=== PATIENT | male | born 1935 | race American Indian/Alaskan Native ===

== ENCOUNTER 2019-02-26 06:25 | Emergency (ER) | payer MEDICARE, OTHER ==
[~2019-02-26] VITALS: Ht 170.2 cm; Wt 102.5 kg
[~2019-02-26 06:25] MED LIST: B-121000 MC2 PO; BAYER CHEWABLE81 MG PO; CARDURA8 MG PO; CIPROFLOXACIN500 MG PO; DILTIAZEM 24HR240 MG PO; FLECAINIDE ACE100 MG PO; HUMALOG KW200 UNIT/1 SUB-Q; HUMALOG100 UNIT/1 SQ; KLOR-CON 1010 MEQ PO; LANTUS SOL100 UNIT/1 SUB-Q; LANTUS100 UNIT/1 SUB-Q; LASIX40 MG PO; LINSEED OIL1 ML MC; LOVAZA1 GM PO; METOLAZONE5 MG PO; METOPROLOL TART50 MG PO; MULTI VITAMIN1 EACH PO; MULTIVITAMINS1 EAC7 PO; NITROGLYCERIN0.4 MG SL; NORCO 7.5-3251 EACH PO; NOVOLOG100 UNIT/1 SUB-Q; OCUVITE SOFTGE1 EACH PO; OMEPRAZOLE40 MG PO; OSTEO BI-FLEX1 EAC2 PO; POTASSIUM CHLO10 MEQ PO; PRADAXA150 MG PO; PRADAXA75 MG; PRILOSEC20 MG PO; RANITIDINE HCL150 MG; SAW PALMETTO160 MG PO; TAMBOCOR100 MG GT; TOPROL XL100 MG PO; TRILIPIX135 MG PO; VITAMIN B-121000 MCG PO; VITAMIN D31000 UNI1 PO; VITAMIN D31000 UNIT PO; VITAMIN E400 UNI3 PO; VITAMIN E400 UNI5 PO; XALATAN2.5 ML OP; XALATAN2.5 ML OU; XARELTO20 MG PO
--- OUTSIDE RECORDS SUMMARY | 2019-02-26 08:24 | XMS ---
PreManage Notification: MARYLOU CARNEY Security Rn Paralegal Events No recent Security Events currently on file CRITERIA MET - [facility] [place] CARE PROVIDERS VICTORINO KAN Nurse Practitioner 02/26/2019-Current PHONE: [phone] [facility] Current PHONE: Unknown LEGACY PATIENT Primary Care [facility] PHONE: Unknown SAIDA ARGUELLES Primary Care 06/17/2014-[facility] PHONE: Unknown Srinivasa has no Care Guidelines for this patient. Care History Medical/Surgical 02/26/2019 [facility] \T\middot;\T\nbsp; PATIENT IS A bMenu MEMBER. \T\middot;\T\nbsp; PLEASE REFER PATIENT TO [facility] FOR NON EMERGENT MEDICAL NEEDS. \T\middot;\ T\nbsp; [facility] CAN SEE PATIENTS SAME DAY FOR APTS IF PATIENT CALLS FIRST THING IN THE MORNING. E.D. VISIT COUNT (12 MO.) 3 [facility]. TOTAL 3 NOTE: Visits indicate total known visits. 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 - Presence of coronary angioplasty implant and graft - Heart failure, unspecified INPATIENT VISIT TRACKING (12 MO.) 01/15/2019 22:17 [facility] TYPE: Medical Surgical DIAGNOSES: - Massive Hemoptysis 01/12/2019 19:46 [facility] TYPE: Critical Care COMPLAINT: - UPPER GI BLEED DIAGNOSES: - Gastritis, unspecified, with bleeding - retirement (current) use of anticoagulants - Presence of coronary angioplasty implant and graft - Allergy status to other drugs, medicaments and biological substances status - retirement (current) use of aspirin - Hyperlipidemia, unspecified - Personal history of nicotine dependence - Allergy status to other antibiotic agents status - Essential (primary) hypertension - Personal history of nicotine dependence - Unspecified atrial fibrillation - Allergy status to other antibiotic agents status - Atherosclerotic heart disease of saxman coronary artery without angina pectoris - Other fci (current) drug therapy - Hematemesis - retirement (current) use of aspirin - Type 2 diabetes mellitus without complications - retirement (current) use of anticoagulants - Type 2 diabetes mellitus without complications - Allergy status to other drugs, medicaments and biological substances status - Gastritis, unspecified, with bleeding - Presence of coronary angioplasty implant and graft - Other fci (current) drug therapy - retirement (current) use of oral hypoglycemic drugs - Hyperlipidemia, unspecified - Atherosclerotic heart disease of saxman coronary artery without angina pectoris - Unspecified atrial fibrillation - Essential (primary) hypertension - retirement (current) use of oral hypoglycemic drugs [id number]
--- NOTE | 2019-02-26 13:09 | EKG ---
[facility] [address] [facility] [place] [address] Signed Normal sinus rhythm ST \T\ T wave abnormality, consider anterior ischemia Prolonged QT Abnormal ECG When compared with ECG of 13-JAN-2019 10:14, No significant change was found Confirmed by SEB DAVILA MD ([id number]) on 02/26/2019 1:08:43 PM Electronically Signed By: SEB DAVILA MD 02/26/19 1309 PATIENT NAME: ANGELIKAMARYLOU ALINA Electrocardiogram DATE OF : 39 PHYSICIAN: SEB DAVILA MD REPORT #: [id number] REPORT IS CONFIDENTIAL AND NOT TO BE RELEASED WITHOUT AUTHORIZATION
== END 2019-02-26 08:23 | disposition home or self-care (01) ==
LOC: ED 06:25
DX: R07.9 Chest pain, unspecified (principal); E11.9 Type 2 diabetes mellitus without complications; I50.9 Heart failure, unspecified; E78.5 Hyperlipidemia, unspecified; K21.9 Gastro-esophageal reflux disease without esophagitis; I48.91 Unspecified atrial fibrillation; Z87.891 Personal history of nicotine dependence; Z88.0 Allergy status to penicillin; Z88.1 Allergy status to other antibiotic agents; Z88.8 Allergy status to other drugs, medicaments and biological substances; Z79.899 Other long term (current) drug therapy; Z79.4 Long term (current) use of insulin; Z79.82 Long term (current) use of aspirin; Z79.01 Long term (current) use of anticoagulants
CPT/HCPCS: 71045; 80053; 83735; 84484; 85025; 93005; 93010; 99285-25

== ENCOUNTER 2020-06-01 15:41 | Inpatient (IN) | payer MEDICARE, OTHER ==
[~2020-06-01] VITALS: Ht 170.2 cm; Wt 99.6 kg
[~2020-06-01 15:41] MED LIST changes: -MULTI VITAMIN1 EACH PO; +OMEPRAZOLE20 MG PO; -PRILOSEC20 MG PO; +THEREMS MULTI400 MCG PO; -VITAMIN D31000 UNI1 PO; +VITAMIN D350 MCG PO
--- OUTSIDE RECORDS SUMMARY | 2020-06-01 15:44 | XMS ---
PreManage Notification: MARYLOU CARNEY Security Jewelry Designer Events No recent Security Events currently on file CRITERIA MET - [facility] - Has Care Guidelines CARE PROVIDERS VICTORINO KAN Nurse Practitioner 02/26/2019-Current PHONE: [phone] Srinivasa has no Care Guidelines for this patient. Care History Medical/Surgical 02/26/2019 [facility] \T\middot;\T\nbsp; PATIENT IS A Poach[employer] MEMBER. \T\middot;\T\nbsp; PLEASE REFER PATIENT TO [facility] FOR NON EMERGENT MEDICAL NEEDS. \T\middot;\ T\nbsp; [facility] CAN SEE PATIENTS SAME DAY FOR APTS IF PATIENT CALLS FIRST THING IN THE MORNING. E.D. VISIT COUNT (12 MO.) [address] [place] [address] TOTAL 1 NOTE: Visits indicate total known visits. ED/UCC VISIT TRACKING (12 MO.) 06/01/2020 15:[address] [facility] TYPE: Emergency COMPLAINT: - WEAKNESS, FEVER INPATIENT VISIT TRACKING (12 MO.) No inpatient visits to display in this time frame [email or web address]
--- NOTE | 2020-06-02 01:14 | NUR ---
0005 PATIENT ARRIVED VIA STRETCHER WITH CAREGIVER. PATIENT ALERT AND ORIENTED. TOO WEAK TO TRANSFER, 2 STAFF ASSIST TO MOVE PATIENT TO BED. VS STABLE, ORAL TEMP 100.1 F. PRN TYLENOL PROVIDED. PATIENT REPORTS SORE NECK AND BACK. WARM PACK PROVIDED. ASSISTED PATIENT TO USE THE URNAL. 0100 LOADING DOSE REMDESIVIR STARTED. IV SITE WNL. CAREGIVER AT BEDSIDE. PATIENT PROVIDED WITH WARM BLANKET AROUND THE SHOULDERS AND A WARM PACK FOR NECK PAIN.
--- NOTE | 2020-06-02 01:52 | NUR ---
REMDESIVIR FINISHED, SITE WNL. SL. ORAL TEMP 100.0 F. PATIENT 89-90% ON ROOM AIR WHEN SLEEPING. STARTED ON 2L NC. CAREGIVER AT BEDSIDE, WARM BLANKET PROVIDED. ALL QUESTIONS ANSWERED. NO FURTHER NEEDS AT THIS TIME. REVIEWED CALL LIGHT AND ENCOURAGED TO CALL FOR ANY NEEDS.
--- NOTE | 2020-06-02 04:00 | NUR ---
PATIENT APPEARS TO BE SLEEPING SOUNDLY. HOB ELEVATED. VS STABLE. CAREGIVER AT BEDSIDE.
--- NOTE | 2020-06-02 06:30 | NUR ---
MORNING LABS DRAWN FROM PATIENT'S IV SITE. PATIENT'S ORAL TEMP WNL. PATIENT'S BEDDING WET FROM DIAPHORESIS. NEW LINENS AND GOWN PROVIDED. PATIENT VOIDED WITH ASSIST FROM CAREGIVER IN URNAL. REPORTS FEELING HE HAD RESTED WELL. VS STABLE. PATIENT DENIED FEELING SOB AT REST. BREAKFAST ORDER RECEIVED.
[2020-06-02] MEDS ORDERED: HYDRALAZINE HCL25 MG PO (08:42)
[2020-06-02] MEDS ORDERED: PAIN RELIEF325 MG PO (08:46)
--- NOTE | 2020-06-02 09:16 | NUR ---
Pt up in bed eating breakfast. Daughter in room. BG 147 this morning. 3 units of humalog given w/ breakfast as well as 30 units of lantus. Pt is eating and drinking well. Adequate urine output. BP 150-160 systolic though HR is in 50's. Daughter reports this is baseline for him and Dr. Connor consulted while in room, 100 mg ER metoprolol given as it is what pt takes at home. Morning meds given and assessment completed. Pt denies nausea. Says eyes are burning and he takes lantaprost at home for his glaucoma, notified and daughter Lissette to bring in eye drops for tonight. Will get verified through pharmacy. No other needs at this time.
--- NOTE | 2020-06-02 09:30 | NUR ---
Called to speak with pt as he has +Covid. Spoke with daughter, Lissette. She states he lives alone. He has a ramp and his home has rails in the bathroom and halls. He uses a walker, has a shower chair, and uses his ramp. She denies needs, family will stay with him dc and assist as needed when he is released. Encouraged her to contact CM if she thinks of anything they will need for a safe dc.
--- NOTE | 2020-06-02 11:09 | NUR ---
Update given to Sandra from [facility].
--- NOTE | 2020-06-02 12:00 | NUR ---
PT EATING LUNCH. ACCUCHECK 253 AND 7 UNITS OF HUMALOG GIVEN IN LEFT ARM. PT IS TOLERATED ROOM AIR AT 91-94%. DAUGHTER TAWNYA REMAINS AT BEDSIDE ASSISTING PT W/ URINAL USE PRN. RT HAS BEEN IN TO SEE PT AND GIVEN EDUCATION OF IS, ACAPELLA AND PRONING TOLERATED. NO ACUTE CHANGES. CALL LIGHT IN REACH.
--- NOTE | 2020-06-02 12:54 | NUR ---
DUE TO PRECAUTIONS, UNABLE TO VISIT IN PERSON. WILL CALL IF PT DESIRES
--- NOTE | 2020-06-02 13:49 | NUR ---
Got pt. up and into shower. Pt. sat on shower tube and I assisted him with the shower. Pt. had a small bowel movement on the toilet. Pt. walked back to bed with assistance. Bed linens changed, room picked up. No other needs at this time. Call light with in reach. Pt. daughter in room with him.
--- NOTE | 2020-06-02 16:00 | NUR ---
IN TO CHECK PT BG 323. PT STATES HE NORMALLY TAKES HIGHER DOSE OF HUMALOG AT HOME SCHEDULED W/ MEALS. AFTERNOON ASSESSMENT COMPLETED. LUNG SOUNDS CLEAR, VSS. TOLERATING AMBULATING SHORT DISTANCES WELL. PT REMAINS BRADYCARDIC, WHICH IS BASELINE FOR HIM PER PT AND DAUGHTER. DINNER ORDERED. PT HOB ELEVATED WATCHING TV. CALL LIGHT IN REACH.
--- NOTE | 2020-06-02 18:00 | NUR ---
PT GIVEN 9 UNITS OF HUMALOG FOR BG OF 323, W/ DINNER. NOTIFIED OF HIGH BG THROUGHOUT DAY. 10 UNITS OF LANTUS ORDERED HS. PT HAS HAD ADEQUATE OUTPUT TODAY. ENCOURAGING TO DRINK FLUIDS. EDUCATED ON PRONING. IV SITE IN LAC REMAINS PATENT AND FLUSHING WELL. DAUGHTER PAM IS NOW IN ROOM. LANTAPROST EYE DROPS BROUGHT IN FOR PT'S GLAUCOMA. TO BE VERIFIED BY PHARMACY. ADVANCE DIRECTIVE BROUGHT IN BY DAUGHTER WHO WILL REMAIN AT BEDSIDE THROUGHOUT NIGHT. HELPFUL IN PT CARE. PT IS WITHOUT COMPLAINT AT THIS TIME AND HAS CALL LIGHT IN REACH.
--- NOTE | 2020-06-02 19:45 | NUR ---
PATIENT PROVIDED WITH EVENING MEDICATIONS AT THIS TIME PER FAMILY REQUEST. PATIENT REPORTS PAIN IN HIS NECK 01/24, PRN TYLENOL PROVIDED. PATIENT TOLERATING ROOM AIR, O2 SATS 92-94%. RR 20. ORAL TEMP WNL. PATIENT DENIED FEELING SOB AT REST. DISCUSSED ELEVATED BLOOD GLUCOSE, PATIENT VERBALIZED UNDERSTANDING OF SHORT TERM STERIOD TREATMENT ON HIS BLOOD GLUCOSE. FRESH ICE WATER PROVIDED. FAMILY AND PATIENT DENIED FURTHER NEEDS. CALL LIGHT IN REACH.
--- NOTE | 2020-06-02 21:40 | NUR ---
SCHEDULED IV MEDS FINSIHED. SITE WNL, SL. PATIENT TALKING WITH HIS FAMILY. DOES NOT APPEAR SOB, DENIES FEELING UNWELL. VS STABLE. TOLERATING ROOM AIR. DENIED NEEDS AT THIS TIME.
--- NOTE | 2020-06-03 | NUR ---
PATIENT APPEARS TO BE SLEEPING SOUNDLY. INGOT CASTER AT BEDSIDE. VS STABLE.
--- NOTE | 2020-06-03 06:00 | NUR ---
MORNING MEDS PROVIDED. PATIENT WAKES EASY. PATIENT REPORTS FEELING WELL. DENIES PAIN OR SOB. VS STABLE. GOWN DAMP. NEW GOWN APPLIED. PATIENT DENIED FURTHER NEEDS.
--- NOTE | 2020-06-03 07:30 | NUR ---
PATIENT SHIFT REPORT RECIEVED FROM JAPANESE INTERPRETER RN. PATIENT RESTING IN BED WITH HIS DAUGHTER AT THE BEDSIDE. PATIENT AND FAMILY CALL APPROPRIATELY. WILL CONTINUE TO CLOSELY MONITOR.
--- NOTE | 2020-06-03 09:30 | NUR ---
PATIENT ASSESSMENT COMPLETED. PATIENT RESTING IN BED WITH HIS DAUGHTER AT THE BEDSIDE. ALL QUESTIONS ANSWERED. UNABLE TO LISTEN TO BREATH SOUNDS, BOWEL TONES, AND HEART TONES D.Bobby THIS RN WEARING A PAPR. PATIENT HAS AN OCCASIOANL LOOSE COUGH. PATIENT RR 22 AND NONLABORED. SPO2 95% ON RA. PATIENT DENIES ABD PAIN. PATIENT REPORTS CHRONIC BACK PAIN. THE HOB NEEDS TO BE IN A SPECIFIC SPOT FOR HIS COMFORT. PATIENT ATE BREAKFAST ON HIS OWN THIS AM WITH NO ISSUES. MEDICATIONS ADMINISTERED. PATIENT BRUSHED HIS OWN TEETH AND WASHED HIS FACE. ASSISTED PATIENT ONTO HIS RIGHT SIDE WITH PILLOW SUPPORT. RASCH IN TO SEE PATIENT AT THIS TIME. WILL CONTINUE TO CLOSELY MONITOR. CALL LIGHT IN REACH.
--- NOTE | 2020-06-03 10:00 | NUR ---
NO CHANGES IN DISCHARGE PLAN AT THIS TIME.
--- NOTE | 2020-06-03 11:00 | NUR ---
PATIENT TALKING TO FAMILY ON THE PHINE. PATIENT DENEIS ANY OTHER NEEDS AT THIS TIME. WILL CONTINUE TO CLOSELY MONITOR.
--- NOTE | 2020-06-03 11:24 | NUR ---
PATIENT SLEEPING IN BED RIGHT NOW WITH HIS DAUGHTER AT THE BEDSIDE. NO NEEDS AT S ITIME. WILL ENCOURAGE PATIENT TO CONTINUE RESTING ON HIS SIDE AT THIS TIME.
--- NOTE | 2020-06-03 12:15 | NUR ---
THIS RN IN TO ASSIT PATIENT UP TO THE BATHROOM. PATIENTS LINEN CHANGED. PATIENT NOW UP RESTING IN THE CHAIR EATING LUNCH. PATIENTS DAUGHTER IN THE ROOM. MEDICATIONS GIVEN. NO OTHER NEED AT THIS TIME. WILL CONTINUE TO CLSOELY MONITOR.
--- NOTE | 2020-06-03 12:34 | NUR ---
PT ON RESTRICTIONS, WILL FOLLOW ABLE OR NEEDED
--- NOTE | 2020-06-03 13:31 | NUR ---
Asst. pt. to bathroom using his walker. Pt. walked back to the chair using his walker. Gave pt. Bed bath. Changed gowns, no other needs at this time. Daughter in room wih pt.
--- NOTE | 2020-06-03 14:30 | NUR ---
THIS RN IN TO ASSIST PATIENT UP TO THE BATHROOM. PATIENT WALKED WITH THE WALKER WITH NO ISSUES AND NOW BACK TO BED. ASSISTED PATIENT TO HIS LEFT SIDE WITH PILLOW SUPPORT TO INCREASE POSITION CHANGES. PATIENT IS UNABLE TO LAY PRONE, BUT IS AGREEABLE TO LAYING ON EACH SIDE FOR SEVERAL HOURS. PATIENT CONTINUES TO USE AQAPELLA AND IS WITH HIS DAUGHTERS ENCOURAGEMENT. PATIENT REMOVED BOTH HEARING AIDS AND PLACED IN HIS CONTAINER AT THIS TIME. PATIENTS DAUGHTER REMAINS AT THE BEDSIDE. NO OTHER ISSUES WILL CONTINUE TO CLOSELY MONITOR.
--- NOTE | 2020-06-03 16:00 | NUR ---
REPORT GIVEN TO NAEL MOSCOSO. UPDATED ON PATIENTS PLAN OF CARE. NO FURTHER QUESTIONS. NAEL MOSCOSO WILL RESUME CARE.
--- NOTE | 2020-06-03 16:13 | NUR ---
1605: Report received from Prasad MOSCOSO.
--- NOTE | 2020-06-03 17:25 | NUR ---
Pt watching tv and visiting with his daughter (Daysi). He denies any pain or sob, to include when he ambulated to the BR with Daysi. Sat is in the 90's on RA. I was unable to listen to his heart, lungs or abd due to PAPR. Tele reads SB in the high 40's which he and Daysi state is baseline for him. Call vogt within reach and the pt is eating his dinner and denies any other needs at this time.
--- NOTE | 2020-06-03 18:48 | NUR ---
WOUND BEHIND THE RIGHT EAR WAS CHANGED. THE OPEN AREA IS 1X.25CM WITH SOME RED AREA AROUND THE OPEN AREA. THE SITE WAS CLEANED WITH SALINE, PATTED DRY AND PACKED WITH IODOFORM PACKING STRIP. THE PT STATED THERE WAS SOME DISCOMFORT WHICH HE STATES IS NORMAL AND HE STATES THE PAIN IS NOW GONE. SIRIA STATES THIS IS HOW THEY DO THE DRESSING CHANGE AND THEY DO IT DAILY. PT ASSISTED TO THE BR AND TOLERATED IT WELL WITH NO SOB. HE WAS A BIT WEAK AND SLIGHTLY UNSTEADY ON HIS FEET WITH HIS WALKER. PT NOW BACK TO BED AND PLACED ON A PORTABLE TELE UNIT TO ALLOW MORE MOBILITY.
--- NOTE | 2020-06-03 19:50 | NUR ---
PT TRANSFERED TO SC FROM CCU. ORIENTED TO ROOM, VITAL SIGNS COMPLETED, VISITORS AT BEDSIDE ENGAGED IN CARE. CALL LIGHT IN REACH, WILL CONTINUE PLAN OF CARE.
--- NOTE | 2020-06-03 20:56 | NUR ---
MEDICATIONS ADMINISTERED, IV FLUSHED WNL. VITALS COMPLETE, PT SINUS DENAE AT BASELINE. PT STATES NO SOB, RR AT 20, SPO2 AT 96% ON RA. UNABLE TO AUSCULTATE DUE TO PAPR USE. PT REPORTS A BOWEL MOVEMENT TODAY, USES 4WW WITH SBA TO BR TO VOID AND URINAL AT BEDSIDE. R EAR WOUND PACKED W IODOFORM GAUZE, NO DRAINAGE NOTED AT THIS TIME, PT REPORTS NO PAIN. TRACE EDEMA TO BLE, PT STATES NO NUMBNESS OR TINGLING IN FEET BUT PRIOR NOTES STATE PT HAS BASELINE NUMBNESS. PT SAXMAN, HAS HEARING AIDS. TELE IN PLACE. PT AMBULATED TO BR USING 4WW, STEADY GAIT, SBA. 1 UNMEASURED VOID. PT BACK TO BED WITH WARM BLANKET, HOT PACK ON NECK, URINAL AT BEDSIDE AND WATER REFRESHED. DAUGHTER IN ROOM, ATTENTIVE TO PT AND ENGAGED IN CARE. CALL LIGHT IN REACH, NO OTHER NEEDS AT THIS TIME.
--- NOTE | 2020-06-03 23:15 | NUR ---
ROUNDED ON PATIENT, IN BED RESTING WITH EYES CLOSED, NO LABORED BREATHING. DAUGHTER IN ROOM. SALINE LOCKED, CALL LIGHTIN REACH, NO OTHER NEEDS NOTED AT THIS TIME.
--- NOTE | 2020-06-04 01:04 | NUR ---
Rounded on patient, laying in bed with eyes closed, breathing even and unlabored. Daughter in room. Pt has no apparent needs or distress at this time, call light in reach, will continue to monitor.
--- NOTE | 2020-06-04 01:58 | NUR ---
CALL LIGHT ANSWERED, PT REQUESTS PRN TYLENOL FOR GENERAL DISCOMFORT "CANT SLEEP". THERMOSTAT ADJUSTED, WATER REFRESHED, SLEEP MASK PROVIDED. DAUGHTER STATES PT HAS BEEN UP TO BR 3X, UNMEASURED VOIDS. MEASURING HAT PLACED IN TOILET. ASSESSMENT COMPLETE, UNABLE TO LISTEN D/T PAPR BUT PT REPORTS NO SOB, NO LABORED BREATHING, RR 18. NO OTHER NEEDS REPORTED.
--- NOTE | 2020-06-04 03:29 | NUR ---
ROUNDED ON PATIENT, RESTING IN BED WITH SLEEP MASK ON, BREATHING EVEN AND UNLABORED. NO APPARENT NEEDS OR DISTRESS, DAUGHTER IN ROOM. CALL LIGHT IN REACH, WILL CONTINUE TO MONITOR.
--- NOTE | 2020-06-04 05:29 | NUR ---
Rounded on patient, in bed with eyes closed, no labored breathing noted. On room air. no apparent needs. will continue to monitor.
--- NOTE | 2020-06-04 06:30 | NUR ---
SCHEDULED MEDICATIONS ADMINISTERED, VITALS AND I/O'S COMPLETE, LABS DRAWN. PT STATES NO PAIN OR DISCOMFORT AT THIS TIME, IS RESTING COMFORTABLY IN BED WITH DAUGHTER IN ROOM. ON ROOM AIR, SPO2 95%, REPORTS NO SOB. CALL LIGHT IN REACH, WILL CONT TO MONITOR
--- NOTE | 2020-06-04 07:15 | NUR ---
THIS RN RECIEVED REPORT FROM JD MOSCOSO. THIS RN DID NOT GO IN PTS ROOM FOR REPORT DUE TO A PRECAUTION ROOM. PTS DAUGHTER SOLEDAD IN ROOM
--- NOTE | 2020-06-04 09:30 | NUR ---
THIS RN IN PTS ROOM TO TALK WITH PTS AND GIVE HER AN UPDATE ON PTS STATUS. THIS RN ASKED IF PT WOULD LIKE SOME GATORADE OVER WATER, PT STATED THAT WOULD BE OKAY. IN PTS ROOM TO EVALUATE PT. PER VERBAL ORDER FROM THIS RN TO SALINE LOCK PT UNTIL AFTER THE LAB DRAW. PT SALINE LOCKED AT THIS TIME
--- NOTE | 2020-06-04 12:20 | NUR ---
THIS RN IN PTS ROOM TO DO PTS BLOOD SUGAR. BLOOD SUGAR = 230. THIS RN GAVE PT 7 UNITS OF INSULIN, DUE TO PT BEING IN AN ISOLATION ROOM THIS RN AND DANIEL RN DOUBLE VERIFIED INSULIN OUTSIDE OF ROOM. PTS VITALS LOOK GOOD. HR STILL LOW IN THE MID TO LOW 50'S. AWARE
--- NOTE | 2020-06-04 14:45 | NUR ---
THIS RN POKED HER HEAD IN PTS ROOM. PT BACK IN BED AND APPEARS TO BE RESTING. THIS RN STATED TO PTS DAUGHTER THAT THIS RN WILL BE BACK TO HOPEFULLY GET PT IN THE SHOWER LATER, PTS DAUGHTER GAVE THIS RN A THUMBS UP
--- NOTE | 2020-06-04 17:15 | NUR ---
THIS RN IN PTS ROOM TO GET PTS BLOOD SUGAR. PTS BLOOD SUGAR WAS 366. PT DID HAVE HIS DAUGHTERS JOSE MANUEL MOROCHO WITH [employer] PUTTING HIS CARB LIMIT AT 92. PT ALSO RECIEVED DEXAMETHASONE. THIS RN PROVIDED PT WITH 11 UNITS OF HUMALOG. PT STATES HE HAS NO PAIN
--- NOTE | 2020-06-04 19:20 | NUR ---
PT LYING IN BED. SHIFT REPORT RECIEVED BY RN. DAUGHTER IN ROOM.
--- NOTE | 2020-06-04 22:17 | NUR ---
ASSESSED PT BP AND IS HIGH 190 SYSTOLIC. PT DENIES SOB, CHEST PAIN AND SILVER. MD NOTIFIED. NO NEW ORDERS RECIEVED.
--- NOTE | 2020-06-04 23:20 | NUR ---
PT LYING IN BED. ASSESSMENT COMPLETE. SCHEDULED MEDS GIVEN. PT STATES THAT HE DOES NOT FEEL LIGHT HEADED AT THIS TIME. PT DENIES PAIN. DRESSING CHANGE COMPLETE ON R EAR. NO DRAINAGE NOTED. WILL CONTINUE TO MONITOR. DAUGHTER IN ROOM. CALL LIGHT IN REACH.
--- NOTE | 2020-06-05 00:33 | NUR ---
PT 1P STANDBY TO THE BATHROOM. MONITORED BP HIGH 190 WITH SYSTOLIC. PRN BP MED GIVEN.
--- NOTE | 2020-06-05 01:33 | NUR ---
REASSESSED BP 199/66 WITH MONITOR AND 192/60 MANUALLY. NOTIFIED. NO NEW ORDERS. WILL CONTINUE TO MONITOR.
--- NOTE | 2020-06-05 01:35 | NUR ---
PT DENIES CHEST PAIN AND SOB.
--- NOTE | 2020-06-05 03:51 | NUR ---
ROUNDED PT LYING IN BED. EYES CLOSED. NO S/S OF SOB.RR WNL WITH UNLABORED BREATHING. DAUGHTER IN ROOM. CALL LIGHT IN REACH.
--- NOTE | 2020-06-05 07:46 | NUR ---
[id number]: Report received from Marie Mchugh and Monse MCHUGH.
--- NOTE | 2020-06-05 08:34 | NUR ---
PT RESTING IN HIS BED WITH NO COMPLAINTS OF PAIN OR SOB. BP REMAINS ELEVATED BUT WAS RECENTLY MEDICATED BY THE PRIOR SHIFT. MD NOTIFIED OF ELEVATED BP AND THE MEDS THAT WERE GIVEN. SEE ASSESSMENT.
--- NOTE | 2020-06-05 10:37 | NUR ---
PT'S DAUGHTER STATES THAT SHE ASSISTED TO THE PT TO THE BR WITH THE USE OF HIS WALKER. SHE STATES THAT THE PT IS STEADY WITH THE WALKER AND THAT HE IS MOVING THE SAME HE WAS BEFORE HE BECAME SICK. PT DENIES ANY PROBLEMS AT THIS TIME.
--- NOTE | 2020-06-05 11:49 | NUR ---
PT AMBULATED TO THE BR WITH THE USE OF HIS WALKER AND WAS STEADY ON HIS FEET. PT NOW BACK TO HIS BED AND HE IS WATCHING FOOTBALL WITH HIS DAUGHTER. PT CONTINUES TO DENY ANY PROBLEMS.
--- NOTE | 2020-06-05 13:25 | NUR ---
Pt resting in his bed and he denies any sob, pain or any other problems. See assessment.
--- NOTE | 2020-06-05 13:27 | NUR ---
Pt's daughter Kamini requested that the IV site not be changed as the pt is planning for a dc tomorrow and that he is a tough iv start.
[2020-06-05] MEDS ORDERED: DEXAMETHASONE6 MG PO (14:50)
--- NOTE | 2020-06-05 15:54 | NUR ---
PATIENT UP TO BATHROOM, SBA FWW. PATIENT MOSTLY IND IN SHOWER. SKIN CARE, SHAMPOO, DONTA CARE DONE. NEW ATTENDS, SOCKS, AND GOWN. LINENS CHANGED. PATIENT TOLERATED SHOWER WELL AND HAD O2 STAT OF 94% IMMEDIATLY FOLLOWING SHOWER ON RA. PATIENT NOW BACK TO BED, SBA FWW. VISITOR IN ROOM. CALL LIGHT IN REACH. NO FURTHER NEEDS AT THIS TIME.
--- NOTE | 2020-06-05 16:12 | NUR ---
PT WATCHING TV AND IS VISITING WITH HIS DAUGHTER AND HE DENIES ANY PROBLEMS AT THIS TIME.
--- NOTE | 2020-06-05 16:54 | NUR ---
PT CONTINUES TO DENY ANY PROBLEMS. PT TURNED TO HIS SIDE AT THIS TIME FOR A POSITION CHANGE.
--- NOTE | 2020-06-05 19:20 | NUR ---
PT LYING IN BED. SHIFT REPORT RECIEVED BY RN. DAUGHTERS IN THE ROOM. CALL LIGHT IN REACH.
--- NOTE | 2020-06-05 20:45 | NUR ---
PT LYING IN BED. ASSESSMENT COMPLETE. SCHEDULED MEDS GIVEN. I AND O'S DONE. DRESSING CHANGE COMPLETE. NO DRAINAGE NOTED. PT DENIES SOB AND PAIN. BP SYSTOLIC 167. HR HIGH 40'S. DAUGHTER IN THE ROOM. CALL LIGHT IN REACH.
--- NOTE | 2020-06-05 22:46 | NUR ---
PT LYING IN BED. EYES CLOSED. NO S/S OF SOB. RR WNL WITH UNLABORED BREATHING. DAUGHTER IN ROOM. CALL LIGHT IN REACH.
--- NOTE | 2020-06-05 23:33 | NUR ---
PT LYING IN BED. EYES CLOSED. NO S/S OF SOB. RR WNL WITH UNLABORED BREATHING. TELE BATTERY REPLACED. DAUGHTER IN ROOM. NO NEEDS AT THIS TIME.
--- NOTE | 2020-06-06 00:04 | NUR ---
PT LYING IN BED. EYES CLOSED. NO S/S OF SOB. RR WNL WITH UNLABORED BREATHING. DAUGHTER IN ROOM.
--- NOTE | 2020-06-06 04:33 | NUR ---
PT LYING IN BED. EYES CLOSED. RR WNL WITH UNLABORED BREATHING. CALL LIGHT IN REACH.
--- NOTE | 2020-06-06 05:16 | NUR ---
ALERT AND ORIENTED. [facility]. DRESSING CHANGED ON R EAR. NO DRAINAGE NOTED. TELE #2 SINUS DENAE 40'S HR. NO S/S OF SOB. DENIES PAIN. IV SALINE LOCKED. 60G CARB DIET. 1P STANDBY TO THE BATHROOM. DAUGHTER IN ROOM.
--- NOTE | 2020-06-06 06:26 | NUR ---
PT LYING IN BED. ASSESSMENT COMPLETE. PT DENIES CHEST PAIN AND SOB. BP HIGH 180'S SYSTOLIC. PRN BP MED ADMINISTED. I AND O'S DONE. CALL LIGHT IN REACH.
--- NOTE | 2020-06-06 07:40 | NUR ---
REPORT RECEIVED. PT IN ISOLATION ROOM WITH DAUGHTER. TELE [address] HR 48. O2 96% RA. CALL LIGHT IN REACH.
--- NOTE | 2020-06-06 08:25 | NUR ---
WENT IN TO CHECK BLOOD SUGAR, BLOOD SUGAR WAS 71, RN NOTIFIED. PATIENT WAS SITTING UP IN BED, VISITOR IN ROOM. MADE SURE ALL AM AAND ORAL CARE SUPPLIES WERE AVALIABLE FOR PATIENT. ASKED BOTH PATIENT AND VISITOR IF THEY NEEDED ANYTHING THEY BOTH SIAD NO. CALL LIGHT IN REACH. NO FURTHER NEEDS AT THIS TIME.
--- NOTE | 2020-06-06 10:04 | NUR ---
MEDS GIVEN. PT SAT UP FOR BREAKFAST. BS 71 SO JUICE AND CRACKERS GIVEN. DAUGHTER AT BEDSIDE.
--- NOTE | 2020-06-06 10:39 | NUR ---
RN DID VITAL SIGNS EARLIER. THIS TURN SEWER JUST CHECKED ON PATIENT, PATIENT SITTING UP IN BED WATCHING TV, VISITOR AT BED SIDE. CALL LIGHT IN REACH. ASKED PATIENT AND VISITOR IF THEY NEEDED ANYTHING AND BOTH SAID NOT AT THIS TIME.
--- NOTE | 2020-06-06 10:42 | NUR ---
SPOKE WITH DAUGHTER TAWNYA ON ROOM PHONE. SHE STATES THEY HAVE EVERYTHING THEY FEEL THEY NEED FOR PATIENT TO GO HOME SAFELY. DISCUSSED THAT IF SOMETHING COMES UP TO LET STAFF NURSES KNOW AND THEY CAN GET CASE MANAGEMENT INVOLVED. FAMILY WILL BE WITH PATIENT AT HOME. CM WILL CONTINUE TO FOLLOW NEEDED.
--- NOTE | 2020-06-06 11:00 | NUR ---
DISCHARGE INSTRUCTIONS PROVIDED. NO QUESTIONS IV DC'D AND WNL. DAUGHTER ASSISTING WITH DRESSING.
--- NOTE | 2020-06-06 11:34 | NUR ---
DISCHARGE ISNTRUCTIONS PROVIDED TO PATIENT AND DAUGHTER. NO QUESTIONS. PRESCRIPTION PROVIDED. IV DC'D AND WNL. PACKET PROVIDED.
== END 2020-06-06 11:30 | disposition home or self-care (01) | DRG 177 ==
LOC: ED 15:41 → CCU 23:19 → MS 06-03 19:45
PROVIDERS: ADMIT Internal Medicine; ATTEND Internal Medicine
PROC: XW033E5 Introduction of Remdesivir Anti-infective into Peripheral Vein, Percutaneous Approach, New Technology Group 5 (ICD-10-PCS; principal; 2020-06-02)
DX: U07.1 COVID-19 (principal); J12.89 Other viral pneumonia; R09.02 Hypoxemia; I25.10 Atherosclerotic heart disease of native coronary artery without angina pectoris; I10 Essential (primary) hypertension; E11.9 Type 2 diabetes mellitus without complications; I48.91 Unspecified atrial fibrillation; H91.90 Unspecified hearing loss, unspecified ear; Z95.5 Presence of coronary angioplasty implant and graft; Z87.891 Personal history of nicotine dependence; Z88.8 Allergy status to other drugs, medicaments and biological substances; Z88.1 Allergy status to other antibiotic agents; Z79.01 Long term (current) use of anticoagulants; Z79.82 Long term (current) use of aspirin; Z79.4 Long term (current) use of insulin; Z79.899 Other long term (current) drug therapy
CPT/HCPCS: 71045; 71260; 80053; 81001; 83735; 83880; 84484; 85025; 85379; 94667; 99285-25; J1815; J7030; J7050; J8540; Q9967

== ENCOUNTER 2021-04-24 19:09 | Inpatient (IN) | payer MEDICARE, OTHER ==
[~2021-04-24] VITALS: Ht 170.2 cm; Wt 94.8 kg
[~2021-04-24 19:09] MED LIST changes: +DEXAMETHASONE6 MG PO; +HYDRALAZINE HCL25 MG PO; +PAIN RELIEF325 MG PO
--- NOTE | 2021-04-25 17:07 | EKG ---
[facility] [address] [facility] [place], [place] [address] Signed Normal sinus rhythm Nonspecific ST and T wave abnormality Prolonged QT Abnormal ECG When compared with ECG of 26-FEB-2019 06:30, No significant change was found Confirmed by ALAN LOREDO DO ([id number]) on 04/25/2021 5:07:40 PM Electronically Signed By: ALAN LOREDO DO 04/25/21 1707 PATIENT NAME: MARYLOU CARNEY Electrocardiogram DATE OF : 39 PHYSICIAN: ALAN LOREDO DO REPORT #: [id number] REPORT IS CONFIDENTIAL AND NOT TO BE RELEASED WITHOUT AUTHORIZATION
[2021-04-26] MEDS ORDERED: HYDRALAZINE HCL50 MG PO (08:02)
[2021-04-26] MEDS ORDERED: METRONIDAZOLE250 MG PO (08:04)
[2021-04-26] MEDS ORDERED: NITROSTAT0.4 MG SL (08:18)
--- NOTE | 2021-04-28 22:30 | EKG ---
[facility] [address] [facility] [place], [place] [address] Signed Normal sinus rhythm Rightward axis Nonspecific ST abnormality Prolonged QT Abnormal ECG When compared with ECG of 24-APR-2021 19:54, T wave inversion less evident in Anterior leads QT has lengthened Confirmed by ALAN LOREDO DO ([id number]) on 04/28/2021 10:29:55 PM Electronically Signed By: ALAN LOREDO DO 04/28/212229 PATIENT NAME: ANGELIKAMARYLOU ALINA Electrocardiogram DATE OF : 39 PHYSICIAN: ALAN LOREDO DO REPORT #: [id number] REPORT IS CONFIDENTIAL AND NOT TO BE RELEASED WITHOUT AUTHORIZATION
--- NOTE | 2021-04-30 15:07 | CONS ---
[facility] [address] [place], [place] [address] Signed DATE OF CONSULTATION: 04/25/2021 CONSULTING PHYSICIAN: Gaby Griggs MD. REQUESTING PHYSICIAN: Dr. Hudson. PROBLEM: Probable gallstone pancreatitis and multiple medical problems. HISTORY: This relatively frail 85-year-old [place]ian man was admitted to the hospital to the intensive care unit by Dr. Hudson early this morning. The patient presented to the emergency room late last night at approximately 9:30 p.m. and evaluated by Dr. Leach. He was noted to have significant epigastric pain, which had been going on for about 3 days. He noted that food caused worsening pain. He had an elevated temperature to 101 since yesterday as well as chills. He had no nausea, vomiting, diarrhea, or urinary symptoms, nor cough or congestive symptoms. His initial evaluation included chest x-ray, which showed no sign of pneumonia or other particular problem. Labs were assessed for COVID and subtypes of flu, all of which were negative. A CT scan of the abdomen was performed, which showed gallstones and a mildly distended gallbladder, but not acutely inflamed. Bile ducts were unremarkable. There was no sign of choledocholithiasis or intrahepatic ductal dilatation. Pancreas had mild peripancreatic fat stranding and a single calcification in the region of the pancreatic head. There is some nodularity of the left adrenal gland 1.2 cm in diameter. A 10 cm left renal cyst was also noted. I have reviewed those films myself. His lab study showed a white count of only 7.6 with hematocrit of 39.1. By this morning, his white count was elevated at 13.3, his hematocrit down to 33.1. Platelet count was 179,000 and subsequently 156,000. His coag studies were abnormal with an INR of 1.73; the patient does take a thrombin inhibitor. His PTT was elevated at 48.0. Chem profile was abnormal for a creatinine of 1.94. A total bilirubin of 5.6, AST 90, ALT 68, and alk phos 38. His BNP was elevated at 864, lipase 2819. The patient was admitted to the intensive care unit for further management. He has been placed on antibiotics currently to include piperacillin. Initially, he was treated with meropenem. Consultation has been requested on the basis of his probable gallstone related pancreatitis. Electronically Signed By: GABY GRIGGS MD 04/30/21 1507 PATIENT NAME: MARYLOU CARNEY CONSULTATION DATE OF : 39 REPORT #: [id number] PHYSICIAN: GABY GRIGGS MD PCP: VANE FOLEY MD REPORT IS CONFIDENTIAL AND NOT TO BE RELEASED WITHOUT AUTHORIZATION [facility] [address] [place], [place] [address] Signed The patient currently feels epigastric discomfort still. He has had no nausea or vomiting since admission in the hospital earlier in the morning. He has some mild left flank pain as well. 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 He had no esophageal varices and no hemoptysis. The patient has had associated dysphagia in recent times as well including a sensation of "food getting stuck" with both solids and liquids. Other medical issues include chronic atrial fibrillation for which he is anticoagulated, hypertension, congestive heart failure, type 2 diabetes, and chronic renal disease. Notably, the patient does not smoke nor does he use alcohol. ALLERGIES: He has several notable allergies including , Keflex, ezetimibe, irbesartan, lisinopril, metformin, amiodarone, amlodipine, oxybutynin, and fenofibrate. MEDICATIONS: His current medications include omeprazole, multivitamin, metoprolol, doxazosin, fenofibric acid (choline), vitamin D, glargine insulin and Humalog insulin, hydralazine, Tylenol, Xarelto (rivaroxaban), aspirin, Lasix, flecainide, Xalatan (latanoprost) eye drops. REVIEW OF SYSTEMS: He denies any trouble with breathing currently and denies any chest pain. He does describe epigastric pain. SOCIAL HISTORY: He is a [employer] member locally. He is accompanied by his daughter, who is a nurse at [employer]. PHYSICAL EXAMINATION: GENERAL: Large and obese Gu[place]ian man, 102.8 kg, BMI 35.5. Mucous membranes are slightly dry. Trachea is midline. He has no hoarseness. I see no oropharyngeal blood. There is no jugular venous distention. CHEST: Shows normal respiratory excursion without tachypnea. HEART: Rate at present is regular and sinus at 89. ABDOMEN: Soft and nondistended. Easy palpation is noted. There is tenderness in the epigastric area, but no discernible mass. EXTREMITIES: Show no clubbing, cyanosis, or edema. LAB STUDIES: Electronically Signed By: GABY GRIGGS MD 04/30/21 9605 PATIENT NAME: MARYLOU CARNEY CONSULTATION DATE OF : 39 REPORT #: [id number] PHYSICIAN: GABY GRIGGS MD PCP: VANE FOLEY MD REPORT IS CONFIDENTIAL AND NOT TO BE RELEASED WITHOUT AUTHORIZATION [facility] [address] [place], [place] [address] Signed As were previously described. Most notably elevated bilirubin and only mildly elevated liver enzymes as well as elevated creatinine and abnormal coagulation studies. ASSESSMENT: I reviewed the CT scan in detail. His clinical picture is highly consistent with gallstone pancreatitis. Notably, the gallstone noted on CT scan is rather large. He may have additional debris within the gallbladder that has passed through the duct and provoked pancreatitis. A calcific change in the head of the pancreas may represent a stone in the pancreatic duct. However, this is uncertain. I discussed with Dr. Hudson as well as the patient and his daughter typical management to include improvement of the pancreatitis process with intravenous fluids. Pain control would be appropriate as well. He is certainly able to have some clear liquids and ice chips, but should avoid regular eating at this time. Cholecystectomy would be performed to minimize chances of recurrent pancreatitis. The risks of bleeding, infection, bile duct injury, and also failure to cure the problem reviewed with him and his daughter. For now, management from medical perspective is most appropriate, particularly given his need for resolution of his anticoagulation and hopefully improvement of his creatinine. The patient has numerous significant medical comorbidities including his congestive heart failure and diabetes for which this ailment can be extremely serious and even result in demise. All are aware of that. We will continue to follow his course anticipating probable cholecystectomy in the near future depending on his improvement. MD LARY Cortez/KLEVERL /[id number] Copies: Electronically Signed By: GABY GRIGGS MD 04/30/21 1507 PATIENT NAME: MARYLOU CARNEY CONSULTATION DATE OF : 39 REPORT #: [id number] PHYSICIAN: GABY GRIGGS MD PCP: VANE FOLEY MD REPORT IS CONFIDENTIAL AND NOT TO BE RELEASED WITHOUT AUTHORIZATION [address] [address] Signed ~ Electronically Signed By: GABY GRIGGS MD 04/30/21 1507 PATIENT NAME: MARYLOU CARNEY CONSULTATION DATE OF : 39 REPORT #: [id number] PHYSICIAN: GABY GRIGGS MD PCP: VANE FOLEY MD REPORT IS CONFIDENTIAL AND NOT TO BE RELEASED WITHOUT AUTHORIZATION
--- NOTE | 2021-05-01 13:41 | OR ---
[facility] [address] [place], [place] [address] Signed DATE OF OPERATION: 04/25/2021 SURGEON: Sirena Ramirez MD PREPROCEDURAL DIAGNOSIS: Difficult Cameron catheterization. POSTPROCEDURAL DIAGNOSES: 1. Difficult Cameron catheterization. 2. 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 NAME OF PROCEDURE: Diagnostic cystoscopy with insertion of an indwelling Cameron catheter over a Sensor wire. ANESTHESIA: 10 mL of 2% lidocaine gel. ESTIMATED BLOOD LOSS: None. COMPLICATIONS: None. SPECIMENS: None. DRAINS: A 16-S[place]ankan [place] tip Cameron catheter, connected to gravity drainage. INDICATION FOR PROCEDURE: Mr. Carney was admitted to the CCU this morning through the emergency department after presenting with fevers and chills. He underwent a CT scan, which revealed the most likely source of his sepsis as gallstone pancreatitis. Emergency room nurses attempted to place a Cameron catheter. However, they were unsuccessful and immediately noted the return of blood after attempting to pass the catheter. Thankfully, the patient was able to void on his own after his admission, however, he is sick enough to require continuous urine output monitoring and so Urology was consulted and has been asked to place an indwelling Cameron catheter. PROCEDURAL FINDINGS: Electronically Signed By: SIRENA RAMIREZ MD 05/01/21 1341 PATIENT NAME: MARYLOU CARNEY OPERATIVE REPORT DATE OF : 39 REPORT #: [id number] PHYSICIAN: SIRENA RAMIREZ MD PCP: VANE FOLEY MD REPORT IS CONFIDENTIAL AND NOT TO BE RELEASED WITHOUT AUTHORIZATION [facility] [address] [place], [place] [address] Signed 1. Visual inspection of the external genitalia reveals an uncircumcised phallus with a glanular meatus. Testicles are descended bilaterally and are without any palpable masses. 2. Cystourethroscopy reveals a mildly stenotic and pale pendulous urethra. There is a tear in the bulbar urethra at the 5 o'clock position, consistent with a likely urethral false passage due to traumatic Cameron catheterization. It does still appear to be actively bleeding, but only merely oozing at this time. 3. Evaluation of the bladder reveals no evidence of any suspicious masses, lesions, or stones. Bilateral ureteral orifices are in their normal anatomic location. 4. A 16-S[place]ankan [place] tip Cameron catheter was passed into the bladder over a Sensor wire without difficulty, connected to gravity drainage. Approximately 250 mL of urine was drained from the bladder after placement of the Cameron catheter. DESCRIPTION OF PROCEDURE: After informed consent was obtained, the patient was placed in the supine position and his genitalia were prepped and draped in a standard sterile fashion. A flexible cystoscope was advanced through his urethra and into his bladder and a thorough evaluation of his urethra and bladder were then performed. Please see above findings. A 0.03 Sensor wire was passed through the cystoscope and into the patient's bladder under direct visualization. The cystoscope was then removed fully intact, leaving the Sensor wire behind. Over the Sensor wire, a 16-S[place]ankan [place] tip Cameron catheter was passed into the patient's bladder. A good deal of bloody urine was ejected from the bladder as the catheter was passed due to what was likely a bladder contraction. The catheter was placed over the wire without difficulty and the wire was removed leaving the catheter behind. The catheter with balloon was then filled with 10 mL of water. The gravity bag was then connected to the Cameron catheter and an anchor was then placed on the catheter. The procedure was then terminated. The patient tolerated the procedure well without any complication. DISPOSITION: I informed the nurse that the patient may have his catheter removed once he recovers well enough from his sepsis and is transferred to the med/surg unit. He will require a voiding trial. However, I am confident he will pass a voiding trial since he normally has no issues voiding. His urethral false passage should heal fairly well within the next 1 to 2 weeks. Sirena Ramirez MD Electronically Signed By: SIRENA RAMIREZ MD 05/01/21 1341 PATIENT NAME: MARYLOU CARNEY OPERATIVE REPORT DATE OF : 39 REPORT #: [id number] PHYSICIAN: SIRENA RAMIREZ MD PCP: VANE FOLEY MD REPORT IS CONFIDENTIAL AND NOT TO BE RELEASED WITHOUT AUTHORIZATION [address] [address] Signed TERRANCE/YAMILKA /[id number] Copies: ~ Electronically Signed By: SIRENA RAMIREZ MD 05/01/21 1341 PATIENT NAME: MARYLOU CARNEY ALINA OPERATIVE REPORT DATE OF : 39 REPORT #: [id number] PHYSICIAN: SIRENA RAMIREZ MD PCP: VANE FOLEY MD REPORT IS CONFIDENTIAL AND NOT TO BE RELEASED WITHOUT AUTHORIZATION
--- NOTE | 2021-05-02 13:57 | OR ---
[facility] [address] [place], [place] [address] Signed DATE OF OPERATION: 04/28/2021 SURGEON: Gaby Griggs MD PREOPERATIVE DIAGNOSES: 1. Recent acute pancreatitis, gallstone related. 2. Multiple medical problems. 3. Obesity. POSTOPERATIVE DIAGNOSES: 1. Subacute cholecystitis with gallstones. 2. Choledocholithiasis. PROCEDURES: 1. Laparoscopic cholecystectomy with attempted (failed common duct exploration). 2. Surgeon-directed fluoroscopy (prolonged, complicated, and difficult). ANESTHESIA: General endotracheal, Gaby Maria CRNA and local 20 mL of 0.25% Marcaine with epinephrine. INDICATIONS: This 85-year-old obese man has numerous medical problems including congestive heart failure, diabetes mellitus, chronic anticoagulation for atrial fibrillation with a thrombin inhibitor and additional issues including epigastric pain. His evaluation revealed he had pancreatitis with markedly elevated lipase and a CT scan showing distended gallbladder with extremely large stone. There was no sign of intrahepatic ductal dilatation. He was admitted on April 24, 2021, by Dr. Hudson and treated for systemic sepsis in the intensive care unit initially with broad-spectrum antibiotics. His liver enzymes though elevated initially have progressively improved to the point now that his alkaline phosphatase and bilirubin are normal. His lipase remains elevated, but improving and though he still has some epigastric pain and some posterior thoracic pain particularly the left side. Consideration is made for a cholecystectomy, so as to minimize chances of recurrent pancreatitis in the future. The risks of bleeding, infection, bile duct injury, need for common duct exploration and so forth were all reviewed with the patient and his daughter, who is a nurse and who accompanies him. They understand and wish to proceed. FINDINGS: Electronically Signed By: GABY GRIGGS MD 05/02/21 1357 PATIENT NAME: MARYLOU CARNEY OPERATIVE REPORT DATE OF : 39 REPORT #: [id number] PHYSICIAN: GABY GRIGGS MD PCP: VANE FOLEY MD REPORT IS CONFIDENTIAL AND NOT TO BE RELEASED WITHOUT AUTHORIZATION [facility] [address] [place], [place] [address] Signed The gallbladder was subacutely inflamed. He had a chronically inflamed liver. There was some bile-stained ascites, but not excessive. I did not detect saponification in the lesser sac. The gallbladder was challenging to excise on the basis of its size and location and more importantly intraabdominal obesity features, but with a Fan retractor, it was able to be accomplished. Cholangiogram performed showed filling defect in the mid common bile duct and multiple attempts to provide for laparoscopic common duct exploration were unsuccessful by transcystic approach. Given his recent pancreatitis, inflammatory changes, and edema of the christian hepatis and so forth, it was deemed inadvisable to proceed to open common duct exploration as I normally would. At this point, it is known he has retained single gallstone in the mid common bile duct, but there is passage of bile through the common duct into the duodenum on completion x-ray. The gallbladder itself had extremely large stones at least one 4 cm in length and other about 2 cm. There was no sign of neoplasm. Due to the extent of inflammation of the gallbladder, a portion of the back wall of the gallbladder was left in situ to the liver. The liver did show chronic changes and fatty infiltration. A drain was left in place. DESCRIPTION OF PROCEDURE: The patient was brought to the operating room, given a general endotracheal anesthetic. The abdomen was prepared with chlorhexidine solution and draped sterilely. Broad-spectrum antibiotics were already on his routine use and an additional dose was not given prior to the operation. A Cameron catheter was already in place. The abdomen was prepared with a chlorhexidine solution and draped sterilely. An infraumbilical incision was made and using an open Sherman cannula technique, pneumoperitoneum was achieved to a level of 14 mmHg of carbon dioxide gas. Intraabdominal inspection showed minimal ascites fluid in the subhepatic space, it was bile stained. There was no sign of free-floating bile otherwise, however. The liver itself was chronically inflamed. The gallbladder appeared to have edema, but not severe acute inflammatory changes. Three additional trocars were placed in the usual configuration in the subxiphoid, right midclavicular, and right anterior axillary line. Given his body habitus of obesity, it was a challenge to elevate the gallbladder particularly given his heavy and fatty liver. The gallbladder was elevated cephalad and an additional 5-mm mid abdominal trocar was placed to allow placement of a Fan retractor, which retracted the duodenum and omental fat to provide visualization of the infundibulum. Significant edema of the infundibulum and surrounding tissue was noted, but there was no evidence of saponification. The infundibulum of the gallbladder was retracted laterally and using blunt electrocautery dissection, the triangle of Calot was dissected free. A very thickened somewhat dilated cystic duct was noted. Ultimately, a window was created between the gallbladder plate. A clip was applied across the gallbladder cystic duct junction and a transverse choledochotomy was made in the cystic duct. There was no significant egress of bile initially. A lot of edema and swelling of the duct was noted. Retrograde milking of the cystic duct remnant was undertaken, which delivered some grainy soft and mushy Electronically Signed By: GABY GRIGGS MD 05/02/21 1357 PATIENT NAME: MARYLOU CARNEY OPERATIVE REPORT DATE OF : 39 REPORT #: [id number] PHYSICIAN: GABY GRIGGS MD PCP: VANE FOLEY MD REPORT IS CONFIDENTIAL AND NOT TO BE RELEASED WITHOUT AUTHORIZATION [facility] [address] [place], [place] [address] Signed material. Intraoperative cholangiography was then undertaken using the Aguirre type cholangiocatheter. Free flow of contrast was noted into the biliary tree and the filling defect, which appeared mobile in the mid duct was noted. It was uncertain if this represented an air bubble or something of the sort, though it was most suspicious for stone. Repeat cholangiogram was obtained showing the filling defect mobile and nonadherent, but clearly not a bubble. Plans were made for laparoscopic common duct exploration. An epigastric taut trocar port was placed in the upper right mid abdomen allowing for alignment of Glidewire ureteral wire. Attempts at passage of the very flexible and soft tip of the wire were unsuccessful down the cystic duct. Various manipulations were made to provide passage of the wire, but simply was not possible. On that basis, the more rajput end of the wire was gently attempted for passage, but it too was unsuccessful. The trocar site was moved to provide better alignment. Attempts at passage of the wire despite every attempt were unsuccessful. The cystic duct was dissected free more medial toward the common duct, though there was a fair amount of edema in the area. Milking of the duct in retrograde fashion was undertaken and placement of a dissecting instrument into the cystic duct itself allowed for egress of dark bile ultimately, but additional attempts at passage of the gaps were simply not possible. On that basis, another cholangiogram was performed, which did confirm a filling defect in the mid to distal common bile duct. The therapeutic dilemma at this point was whether or not to proceed with an open common bile duct exploration or simply proceed with cholecystectomy, anticipating possible ERCP management of the common duct stone in the future. Mindful of his recent significant pancreatitis surrounding edema and so forth and generally hoping to avoid common duct exploration under those circumstances deemed under my judgment to simply proceed with closure of the cystic duct and cholecystectomy. Four clips were applied to the cystic duct and the gallbladder dissected free in a retrograde fashion. The appearance of the posterior wall of the gallbladder to the liver bed was significant and part of the posterior bed was left in situ. Very large stones of the gallbladder were noted and were extracted after being placed in Endobags twice. Irrigation was undertaken more fully. There was some oozing in the hepatic bed, where dissection had been undertaken, this was secured with electrocautery and additionally with spray formulation of Tisseel (fibrin glue). Good hemostasis was noted. Through right-sided trocar site, a 7-mm flat Deondre drain was placed in the subhepatic space. Excess irrigation fluid was suctioned free. Plans were made for closure. The trocars were removed under direct visualization showing no sign of bleeding. The infraumbilical fascial incision was under was closed with interrupted 0 Vicryl suture and a running 0 PDS suture. A 20 mL of 0.25% Marcaine Electronically Signed By: GABY GRIGGS MD 05/02/21 7217 PATIENT NAME: MARYLOU CARNEY OPERATIVE REPORT DATE OF : 39 REPORT #: [id number] PHYSICIAN: GABY GRIGGS MD PCP: VANE FOLEY MD REPORT IS CONFIDENTIAL AND NOT TO BE RELEASED WITHOUT AUTHORIZATION [address] [address] Signed with epinephrine was injected locally in the trocar sites and the skin was closed with interrupted 3-0 Vicryl and Steri-Strips were then applied. The patient was ultimately allowed to emerge from anesthesia, was extubated, and transferred to the recovery room in good condition. Blood loss was less than 50 mL in aggregate. Sponge, needle, and instrument counts reported correct x3. Drain placed was a 7-mm Deondre. MD LARY Cortez/KLEVERL /[id number] cc: MD Woo Ruiz MD Copies: VANE FOLEY MD, BRIAN DO ~ Electronically Signed By: GABY GRIGGS MD 05/02/21 1357 PATIENT NAME: MARYLOU CARNEY OPERATIVE REPORT DATE OF : 39 REPORT #: [id number] PHYSICIAN: GABY GRIGGS MD PCP: VANE FOLEY MD REPORT IS CONFIDENTIAL AND NOT TO BE RELEASED WITHOUT AUTHORIZATION
--- NOTE | 2021-05-02 14:14 | PATH ---
[facility] [address] [facility] [place] [address] Signed SPECIMEN(S): A GALLBLADDER AND CONTENTS SPECIMEN SOURCE: A. GALLBLADDER AND CONTENTS CLINICAL HISTORY: Acute pancreatitis. FINAL PATHOLOGIC DIAGNOSIS: Gallbladder, cholecystectomy: - Acute and chronic calculous cholecystitis. BRP:cml:C2NR MICROSCOPIC EXAMINATION: Histologic sections of all submitted blocks are examined by light microscopy. These findings, together with the gross examination, support the pathologic diagnosis. GROSS DESCRIPTION: The specimen, labeled "SA, gallbladder," is received in formalin and consists of Specimen: Previously opened gallbladder. Dimensions: 7.3 cm in length and 4.3 cm in inner circumference. Serosa: Violaceous, smooth and focally congested. Cystic Duct: Unobstructed. Calculi: Numerous brown gallstones within the container mixed with sludge that range in size from 0.14.2 cm in greatest dimension. Mucosa: [place] and velvety. Wall thickness: 0.2 cm. Lymph node: No pericystic lymph nodes are grossly identified. Additional: None. Hand Almond Blancher sections are submitted in cassette (A1). JS (under the direct supervision of a pathologist) The Gross Description was prepared using a voice recognition system. The report was reviewed for accuracy; however, sound-alike word errors, addition and/or deletions may occur. If there is any question about this report, please contact Client Services. PERFORMING LABORATORY: The technical component was performed by [facility], [address] [place] [id number] (Sound Assistant: Claire Raymond MD; CLIA# [id number]). PATIENT NAME: MARYLOU CARNEY PATHOLOGY DATE OF : 39 REPORT #: [id number] PHYSICIAN: JERONIMO PATHOLOGY PCP: VANE FOLEY MD REPORT IS CONFIDENTIAL AND NOT TO BE RELEASED WITHOUT AUTHORIZATION [facility] [address] [place], [place] [address] Signed Professional interpretation was performed by [facility], [address] [address] (CLIA# [id number]). Diagnostician: Sanjeev Flores MD Pathologist Electronically Signed 05/02/2021 Copies: ~ PATIENT NAME: MARYLOU CARNEY PATHOLOGY DATE OF : 39 REPORT #: [id number] PHYSICIAN: JERONIMO PATHOLOGY PCP: VANE FOLEY MD REPORT IS CONFIDENTIAL AND NOT TO BE RELEASED WITHOUT AUTHORIZATION
[2021-05-06] MEDS ORDERED: LEVOFLOXACIN250 MG PO (11:59)
[2021-05-06] MEDS ORDERED: HYDRALAZINE HCL50 MG PO (12:00)
[2021-05-06] MEDS ORDERED: TOPROL XL100 MG PO (12:00)
[2021-05-06] MEDS ORDERED: OXYCODONE HCL5 MG PO (12:01)
[2021-05-06] MEDS ORDERED: LANTUS SOL100 UNIT/1 SUB-Q (12:02)
[2021-05-06] MEDS ORDERED: HUMALOG KW200 UNIT/1 SUB-Q (12:05)
== END 2021-05-06 13:45 | disposition home health service (06) | DRG 853 ==
LOC: ED 19:09 → CCU 19:11 → MS 04-25 10:48 → CCU 04-25 10:48 → MS 04-26 16:42
PROVIDERS: Surgery; ADMIT Student in an Organized Health Care Education/Training Program; ATTEND Student in an Organized Health Care Education/Training Program
PROC: 0TJB8ZZ Inspection of Bladder, Via Natural or Artificial Opening Endoscopic (ICD-10-PCS; 2021-04-25)
PROC: 0T9B80Z Drainage of Bladder with Drainage Device, Via Natural or Artificial Opening Endoscopic (ICD-10-PCS; 2021-04-25)
PROC: BF532Z0 Other Imaging of Gallbladder and Bile Ducts using Fluorescing Agent, Intraoperative (ICD-10-PCS; 2021-04-28)
PROC: 0FT44ZZ Resection of Gallbladder, Percutaneous Endoscopic Approach (ICD-10-PCS; principal; 2021-04-28 11:00)
DX: A41.9 Sepsis, unspecified organism (principal); K85.10 Biliary acute pancreatitis without necrosis or infection; K72.00 Acute and subacute hepatic failure without coma; N17.9 Acute kidney failure, unspecified; I13.0 Hypertensive heart and chronic kidney disease with heart failure and stage 1 through stage 4 chronic kidney disease, or unspecified chronic kidney disease; S37.39XA Other injury of urethra, initial encounter; Z16.24 Resistance to multiple antibiotics; K80.47 Calculus of bile duct with acute and chronic cholecystitis with obstruction; R65.20 Severe sepsis without septic shock; Z66 Do not resuscitate; Z20.822 Contact with and (suspected) exposure to COVID-19; I48.0 Paroxysmal atrial fibrillation; I50.9 Heart failure, unspecified; K21.9 Gastro-esophageal reflux disease without esophagitis; M62.830 Muscle spasm of back; N18.9 Chronic kidney disease, unspecified; E11.65 Type 2 diabetes mellitus with hyperglycemia; E66.9 Obesity, unspecified; E11.22 Type 2 diabetes mellitus with diabetic chronic kidney disease; I25.10 Atherosclerotic heart disease of native coronary artery without angina pectoris; E78.5 Hyperlipidemia, unspecified; Z87.891 Personal history of nicotine dependence; Z95.1 Presence of aortocoronary bypass graft; Z95.5 Presence of coronary angioplasty implant and graft; Z88.8 Allergy status to other drugs, medicaments and biological substances; Z79.4 Long term (current) use of insulin; Z79.82 Long term (current) use of aspirin; Z79.52 Long term (current) use of systemic steroids; Z79.899 Other long term (current) drug therapy; Y84.6 Urinary catheterization as the cause of abnormal reaction of the patient, or of later complication, without mention of misadventure at the time of the procedure
CPT/HCPCS: 00790; 51702; 51798; 71045; 74176; 74181; 74183; 74300; 80053; 80076; 81001; 82140; 82378; 83605; 83690; 83735; 83880; 85007; 85025; 85610; 85651; 85730; 87040; 87077; 87088; 87186; 88304; 93005; 93010; 94760; 94762; 96375; 97110; 97116; 97162; 97165; 97530; 97535; 99285-25; A9270; A9577; C1769; C1894; G0378; J0131; J0330; J1100; J1160; J1650; J1720; J1815; J1885; J1940; J2185; J2250; J2270; J2405; J2543; J2704; J2765; J3010; J7030; J7121; Q9967; U0003

== ENCOUNTER 2021-07-07 09:55 | Day surgery (SDC) | payer MEDICARE, OTHER ==
[~2021-07-07] VITALS: Ht 170.2 cm; Wt 102.7 kg
[~2021-07-07 09:55] MED LIST changes: +HYDRALAZINE HCL50 MG PO; +LEVOFLOXACIN250 MG PO; +METRONIDAZOLE250 MG PO; +MULTI-VITAMIN1 EACH PO; +NITROSTAT0.4 MG SL; +OXYCODONE HCL5 MG PO
[2021-07-07] MEDS ORDERED: METOPROLOL SUCC50 MG PO (10:25)
--- NOTE | 2021-07-07 11:22 | NUR ---
PT TO ROOM AND TOOK RX TO PHARMACY. PT RESTING IN BED AND DENIES PAIN, NO GRIMACING OR MOANING NOTED. PT SIPPING WATER WITH NO CONCERNS. VSS. PLAN OF CARE DISCUSSED WITH AND PT.
--- NOTE | 2021-07-07 11:42 | NUR ---
07/07/21 1142 Cheri Chirinos 1137-PATIENT ARRIVED TO PACU ON 6L MASK NONAROUSABLE RR EVEN. PATIENT LAYING LEFT LATERAL ABDOMEN SOFT. SINUS BRADYCARDIA 50 ON MONITOR. IVF INFUSING.
--- NOTE | 2021-07-07 13:15 | NUR ---
1105 CHARTED ON WRONG PATIENT.
--- NOTE | 2021-07-08 11:44 | EKG ---
[facility] [address] [facility] [place] [address] Signed Sinus bradycardia Nonspecific ST and T wave abnormality Abnormal ECG When compared with ECG of 28-APR-2021 12:54, QT has shortened Confirmed by SEB DAVILA MD ([id number]) on 07/08/2021 11:44:38 AM Electronically Signed By: SEB DAVILA MD 07/08/21 1144 PATIENT NAME: ANGELIKAMARYLOURENO FULLER Electrocardiogram DATE OF : 39 PHYSICIAN: SEB DAVILA MD REPORT #: [id number] REPORT IS CONFIDENTIAL AND NOT TO BE RELEASED WITHOUT AUTHORIZATION
--- NOTE | 2021-07-10 21:03 | OR ---
[facility] [address] [place], [place] [address] Signed DATE OF OPERATION: 07/07/2021 SURGEON: Gaby Griggs MD PREOPERATIVE DIAGNOSES: 1. Recent hospitalization for gallstone pancreatitis, status post laparoscopic cholecystectomy, subsequent ERCP papillotomy. 2. Incidental finding on stool culture of strep species, high risk for colon cancer. POSTOPERATIVE DIAGNOSIS: Normal colon to cecum. PROCEDURE: Total colonoscopy to cecum. ANESTHESIA: Intravenous sedation, propofol infusion; Marino Hernandez CRNA. INDICATION: This 86-year-old white Japanese man is a patient of Dr. Dias at [facility]. He was recently hospitalized for gallstone pancreatitis, which culminated in laparoscopic cholecystectomy and subsequently ERCP papillotomy as laparoscopic and open common duct exploration were deemed inadvisable given the extent of inflammation from the pancreatitis. He did subsequently undergo ERCP clearing the duct entirely. In the course of his evaluation at the hospital, he was found to have strep species suggestive of high risk for colon cancer and on that basis, colonoscopy is advised at this time. He has had colonoscopy in the past and is said to have had polyps. He has no bleeding, diarrhea or constipation currently. Understand this, he wished to proceed. FINDINGS: The prep was adequate with irrigation, but compliance with a low-fiber diet was probably lacking. Thorough examination was undertaken and I have a high sense of completeness of the colonoscopy as regards to mucosal visualization from cecum to rectum and there was simply no evidence of neoplasm nor sign of polyp, colitis, or other abnormality. There were few scattered diverticula. 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 Digital rectal examination was normal. An Olympus video colonoscope was passed in the rectum and manipulated throughout the colon irrigating along the way as bowel prep was suboptimal. It was able to be done, however. The scope was ultimately advanced to the cecum. The ileocecal valve and appendiceal orifice were well identified. Irrigation was undertaken and careful withdrawal of the scope showed no sign of polyps, cancer, or other inflammatory process. Retroflexed view of the rectum was normal. Scope was removed and the patient was taken to the recovery room in good condition. CONCLUDING DIAGNOSIS: No evidence of polyps or cancer in the colon. PLAN: Recommend repeat colonoscopy if symptoms should occur or in 5 years given prior history of polyps and sooner if symptoms should occur. He will return to the ongoing care of Dr. Dias at [facility]. MD LARY Cortez/YAMILKA /[id number] cc: Dr. Dias at [facility] Copies: ~ Electronically Signed By: GABY GRIGGS MD 07/10/21 2103 PATIENT NAME: MARYLOU CARNEY ALINA OPERATIVE REPORT DATE OF : 39 REPORT #: [id number] PHYSICIAN: GABY GRIGGS MD PCP: VANE DIAS MD REPORT IS CONFIDENTIAL AND NOT TO BE RELEASED WITHOUT AUTHORIZATION
== END 2021-07-07 12:20 | disposition home or self-care (01) ==
LOC: DS 09:55 → OPS 09:55 → DS 11:00 → OPS 11:00
PROVIDERS: ATTEND Surgery
PROC: 0DJD8ZZ Inspection of Lower Intestinal Tract, Via Natural or Artificial Opening Endoscopic (ICD-10-PCS; principal; 2021-07-07 11:45)
DX: R19.5 Other fecal abnormalities (principal); K57.30 Diverticulosis of large intestine without perforation or abscess without bleeding; I48.20 Chronic atrial fibrillation, unspecified; I13.0 Hypertensive heart and chronic kidney disease with heart failure and stage 1 through stage 4 chronic kidney disease, or unspecified chronic kidney disease; E11.22 Type 2 diabetes mellitus with diabetic chronic kidney disease; I50.9 Heart failure, unspecified; N18.30 Chronic kidney disease, stage 3 unspecified; I25.10 Atherosclerotic heart disease of native coronary artery without angina pectoris; Z98.890 Other specified postprocedural states; Z86.010 Personal history of colon polyps; Z79.01 Long term (current) use of anticoagulants; Z88.1 Allergy status to other antibiotic agents; Z88.5 Allergy status to narcotic agent; Z88.2 Allergy status to sulfonamides; Z88.8 Allergy status to other drugs, medicaments and biological substances; Z79.4 Long term (current) use of insulin
CPT/HCPCS: 93005; 93010; J2001; J2704; J7121

== ENCOUNTER 2021-08-30 00:58 | Observation (INO) | payer MEDICARE, OTHER ==
[~2021-08-30] VITALS: Ht 170.2 cm; Wt 99.0 kg
[~2021-08-30 00:58] MED LIST changes: +METOPROLOL SUCC50 MG PO
[2021-08-30] MEDS ORDERED: XARELTO20 MG PO (04:26)
[2021-08-30] MEDS ORDERED: SEMGLEE (Y100 UNIT/2 SUB-Q (04:28)
[2021-08-30] MEDS ORDERED: HUMALOG KW200 UNIT/1 SUB-Q (04:32)
--- NOTE | 2021-08-30 07:29 | NUR ---
PATIENT USES CALL LIGHT AND STATES HE NEEDS TO USE THE BATHROOM. PT WANTING TO JUST USE URINAL IN BED WHICH HE WAS SUCCESSFULLY ABLE TO DO. PT ASKING FOR WATER AND EXPLAINED PLAN OF CARE AND NPO STATUS UNTIL DECISIONS ARE MADE WITH PHYSICIAN. PT'S DAUGHTER IN ROOM WITH PATIENT.
--- NOTE | 2021-08-30 08:00 | NUR ---
VITALS CHARTED. PATIENT RESTING IN BED, DAUGHTER IN ROOM.
--- NOTE | 2021-08-30 08:02 | NUR ---
DR. MALAGON IN ROOM TO SEE PATIENT AT THIS TIME. PLAN OF CARE BEING DISCUSSED.
--- NOTE | 2021-08-30 08:44 | NUR ---
PATIENT WILL START ON CLEAR LIQUIDS AND WE WILL CONTINUE TO MONITOR LAB VALUES AND BMs THROUGH THE DAY. PATIENT SIGNS BLOOD CONSENT FORM BUT HOPEFUL HE WILL NOT NEED BLOOD PRODUCTS. DR. HAAS TO BE CONSULTED BY DR. MALAGON, BUT HOPEFULLY TRYING TO AVOID HAVE A SCOPE IF POSSIBLE SINCE PATIENT HAD A SCOPE IN J[place] WITH DR. GRIGGS AND NO ACUTE FINDINGS. RECORDS BEING COLLECTED FROM [facility] VISIT TO DR. DAVIDSON IN JUNE WELL. CONTINUE TO MONITOR. SCDs ON.
--- NOTE | 2021-08-30 10:21 | NUR ---
PATIENT HELPED TO VOID AGAIN WITH UNDERCOLLAR MAKER HELP. PT NOW RESTING. PT'S DAUGHTER HAS LEFT TO GO HOME FOR A LITTLE WHILE BUT STATES SHE WILL RETURN AROUND LUNCH TIIME. CONTINUE TO MONITOR. ORDER TO GUIAC STOOLS X3.
--- NOTE | 2021-08-30 11:37 | NUR ---
BEDBATH GIVEN. FORESKIN ON PENIS PULLED BACK FOR EXTENSIVE DONTA CARE. PATIENT STATES IT'S BEEN "AWHILE" SINCE HE'S BEEN BALE TO CLEAN HIMSELF PROPERLY IN THE DONTA AREA. PATIENT NOW UP IN CHAIR FOR LUNCH. CALL LIGHT IN EASY REACH. NO OTHER NEEDS AT THIS TIME
--- NOTE | 2021-08-30 12:30 | NUR ---
LABS DRAWN FOR REPEAT HEMOGLOBIN. PT TOLERATED WELL. PT'S DAUGHTER RETURNED AROUND 1200.
--- NOTE | 2021-08-30 16:12 | NUR ---
PATIENT CONTINUES TO REST IN CHAIR WITH HIS DAUGHTER AT BEDSIDE. DENIES FURTHER NEEDS, DENIES PAIN. PT HASN'T HAD ANY FURTHER BMs - NO EVIDENCE OF ANY FURTHER BLEEDING. VITALS STABLE. CLEAR LIQUIDS CONTINUE. HR IN THE UPPER 40s-50s. SP02 97% ON ROOM AIR.
--- NOTE | 2021-08-30 18:18 | NUR ---
PATIENT UP TO BSC TO VOID AND HAVE A BM. PT ABLE TO AHVE A LARGE FORMED BM THAT IS BROWN IN COLOR, AND NO VISIBLE BLOOD NOTED. GUIAC NEGATIVE. TWO MORE BMs TO BE TESTED IF POSSIBLE. PT AND DAUGHTER UPDATED ON RESULT FINDINGS WITH GUIAC.
--- NOTE | 2021-08-30 18:25 | EKG ---
[facility] [address] [facility] [place] [facility] [place] [address] \T\ T wave abnormality, consider anterior ischemia Abnormal ECG When compared with ECG of 07-JUL-2021 10:08, T wave inversion now evident in Lateral leads Confirmed by RUKHSANA MALAGON MD ([id number]) on 08/30/2021 6:25:35 PM Electronically Signed By: RUKHSANA MALAGON MD 08/30/21 1825 PATIENT NAME: ANGELIKAMARYLOU ALINA Electrocardiogram DATE OF : 39 PHYSICIAN: RUKHSANA MALAGON MD REPORT #: [id number] REPORT IS CONFIDENTIAL AND NOT TO BE RELEASED WITHOUT AUTHORIZATION
--- NOTE | 2021-08-30 19:30 | NUR ---
PATIENT SITTING UP IN CHAIR, DAUGHTER IN ROOM. DISCUSSED PLAN OF CARE AND PATIENT AND FAMILY UNDERSTAND THE PLAN. NO QUESTIONS. PATIENT PROVIDED WITH A JELLO. DENIES ANY NEEDS OR CONCERNS AT THIS TIME. CALL LIGHT IN REACH.
--- NOTE | 2021-08-30 20:30 | NUR ---
DISCUSSED PATIENT'S STATUS WITH DR. MALAGON. REVIEWED MEDICAL RECORDS IN CHART WITH eMAR, ORDERS TO CHANGE LOPRESSOR TO PATIENT'S CURRENT DOSE OF 50 MG XL PER MED REC. PATIENT'S HR IN 40-50'S SB. DIET ADVANCED TO 60G CARB. LABS CHANGED FROM Q6H TO 0600 LABS TOMORROW. VERIFIED PLAN WITH MD VIA REPEAT BACK METHOD.
--- NOTE | 2021-08-30 20:30 | NUR ---
PATIENT PROVIDED WITH SCHEDULED EVENING MEDS, ACCU CHECK WITHIN RANGE. NO SSI GIVEN. PATIENT IS AAOX4. DENIES PAIN OR GI UPSET. ABD SOFT, NONTENDER. BOWEL SOUNDS ACTIVE. LUNGS ARE CLEAR, FINE CRACKLES ASA BASES. TOLERATING ROOM AIR. IV SITE WNL X2, SL. 1+ EDEMA IN ASA LOWER EXTREMITITES. PATIENT UP TO THE BSC TO HAVE BM, MOVES SLOWLY AND APPEARS WEAK. DENIES FEELING LIGHTHEADED. PATIENT'S HR REMAINS 50 WITH ACTIVITY. PATIENT VOIDED AND HAD MEDIUM FORMED STOOL, GUAIAC NEGATIVE. PATIENT ASSISTED INTO BED. VS STABLE. CALL LIGHT IN REACH. FAMILY STAYING IN ROOM, BEDDING PROVIDED.
--- NOTE | 2021-08-30 23:24 | NUR ---
PATIENT USED CALL LIGHT TO REQUEST ASSISTANCE TO THE BATHROOM. PATIENT PREVIOUSLY UP TO EDGE OF THE BED AND FOUND BY FLOCHELY RNSCOOTER. PATIENT STATES "I MUST HAVE BEEN SLEEP WALKING, I DON'T KNOW WHERE I WAS GOING". PATIENT UP TO THE [facility], MOVES SLOWLY BUT INDEPENDENTLY. PATIENT HAD ANOTHER LIGHT BROWN, FORMED SOFT STOOL AND VOIDED. GUAIAC TEST NEGETIVE, TOTAL OF 3 STOOLS TESTED NOW. PATIENT RETURNED TO BED. HR 49 WITH ACTIVITY. PATIENT APPEARS WEAK BUT DENIES DIZZINESS OR FEELING SOB. VS STABLE. PATIENT RESTING IN BED, SCDS ON. CALL LIGHT IN HANDS. BED ALARM ACTIVE.
--- NOTE | 2021-08-31 01:09 | NUR ---
CALL LIGHT ON. pt UP TO VOID SBA, LIGHT YELLOW URINE. BACK TO BED. NO FURTHER REQUESTS AT THIS TIME. CALL LIGHT WITHIN REACH.
--- NOTE | 2021-08-31 04:06 | NUR ---
PATIENT CALLED FOR ASSISTANCE TO USE THE URNAL. PATIENT VOIDED 100MLS. 2 STAFF ASSIST TO REPOSITION PATIENT UP IN THE BED. HOB ELEVATED. VS STABLE. PATIENT DENIED ANY FURTHER NEEDS. CALL LIGHT IN REACH.
--- NOTE | 2021-08-31 06:40 | NUR ---
PATIENT APPEARS TO BE SLEEPING OSUNDLY. VS STABLE. CALL LIGHT IN REACH. FAMILY IN ROOM.
--- NOTE | 2021-08-31 08:00 | NUR ---
PT IS AWAKE IN BED WITH DAUGHTER IN ROOM HR STILL IN THE 40'S, OTHER V/S WDL. WILL HOLD ALL CARDIAC MEDS THIS AM. UPPER LOBES CLEAR, LOWER LOBES HACE FINE CRACKLES PRESENT. BILATERAL +1 LOWER LEG EDEMA PRESENT. ABD SOFT TO TOUCH, PT DENIES ANY PAIN, BOWEL TONES ARE ACTIVE. PT OVERALL HAS NO NEW CONCERNS AT THIS TIME. BG WAS 109, NO INSULIN GIVEN.
--- NOTE | 2021-08-31 08:29 | NUR ---
MD MALAGON IS AWARE THAT CARDIAC MEDS WERE HELD THIS MORNING.
--- NOTE | 2021-08-31 08:51 | NUR ---
I ASSISTED PT FROM BED TO CHAIR. UPON STANDING UP, PT FELT VERY WEAK IN HIS LEGS AND WAS ONLY ABLE TO STAND AND PIVOT TO CHAIR. PT DID DENIED DIZZINESS HOWEVER. HR ONLY WENT UP TO 51 WITH MOVEMENT.
--- NOTE | 2021-08-31 09:02 | NUR ---
I TALKED TO MD MALAGON ABOUT PT WEAKNESS WHEN STANDING. PLAN IS TO HAVE PT WALK AFTER BREAKFAST AND TO LET HER KNOW HOW HE DOES.
[2021-08-31] MEDS ORDERED: XARELTO15 MG PO (09:19)
--- NOTE | 2021-08-31 09:54 | NUR ---
PT WALKED WITH FRONT WHEEL WALKER IN CCU AND DID WELL WITH IT. PT STATED THAT HE FEELS LIKE HE IS BACK TO HIS BASELINE. HR IN THE UPPER 50'S WITH WALKING. MD MALAGON WAS CALLED AND UPDATED.
== END 2021-08-31 11:10 | disposition home or self-care (01) ==
LOC: ED 00:58 → CCU 01:00
PROVIDERS: ADMIT Internal Medicine; ATTEND Internal Medicine
DX: K62.5 Hemorrhage of anus and rectum (principal); E11.9 Type 2 diabetes mellitus without complications; I25.10 Atherosclerotic heart disease of native coronary artery without angina pectoris; I48.91 Unspecified atrial fibrillation; E78.5 Hyperlipidemia, unspecified; K21.9 Gastro-esophageal reflux disease without esophagitis; Z79.01 Long term (current) use of anticoagulants; Z79.82 Long term (current) use of aspirin; Z95.1 Presence of aortocoronary bypass graft; Z95.5 Presence of coronary angioplasty implant and graft; Z87.891 Personal history of nicotine dependence
CPT/HCPCS: 36415; 80048; 80053; 85018; 85025; 85610; 85730; 86850; 86900; 86901; 86922; 93005; 93010; A9270; C9113; C9803; J1815; J7030; U0003

== ENCOUNTER 2024-12-27 14:43 | Emergency (ER) | payer MEDICARE, OTHER ==
[~2024-12-27] VITALS: Ht 170.2 cm; Wt 100.7 kg
[~2024-12-27 14:43] MED LIST changes: +ADULT ASPIRIN R81 MG PO; +SEMGLEE (Y100 UNIT/2 SUB-Q; +XARELTO15 MG PO
[2024-12-27 14:55] LABS: BASOPHILS 0.6 % (0.2-1.2); EOSINOPHILS 1.5 % (0.8-7.0); LYMPHOCYTES 23.7 % (21.8-53.1); MCH 30.1 PG (25.7-32.2); MCHC 33.5 g/dL (32.3-36.5); MCV 89.9 fL (79.0-92.2); MONOCYTES 10.3 % (5.3-12.2); NEUTROPHILS 62.9 % (34.0-67.9); RBC 4.45 M/uL (4.63-6.08)
[2024-12-27 15:22] LABS: BLOOD/HGB, URINE NEGATIVE (Negative); KETONE, URINE NEGATIVE (Negative); LEUK ESTERASE, URINE NEGATIVE (negative); NITRITE, URINE NEGATIVE (negative)
[2024-12-27 15:32] LABS: EPITHELIAL CELLS, URINE SQUAMOUS 1+ /lpf (0-1+)
[2024-12-27 15:33] LABS: BACTERIA, URINE NONE SEEN /hpf (negative); CASTS, URINE NONE SEEN \\lpf; CRYSTALS, URINE NONE SEEN (0-1+); REFLEX CULTURE, URINE No (No)
[2024-12-27 15:42] LABS: ALT (SGPT) 33.0 U/L (14-59); AST (SGOT) 30.0 U/L (15-37); GLOMERULAR FILTRATION RATE,EST 54.0 mL/min (>60); PROTEIN, TOTAL 6.9 g/dL (6.4-8.2); UREA NITROGEN 22.0 mg/dL (7-18)
[2024-12-27] MEDS ORDERED: METOPROLOL SUC100 MG PO (16:31)
[2024-12-27] MEDS ORDERED: METOPROLOL SUCC50 MG PO (16:31)
[2024-12-27 16:43] VITALS: BP 127/80
--- NOTE | 2024-12-27 17:51 | EKG ---
[facility] [address] [facility] [place] [address] Signed Atrial fibrillation with rapid ventricular response Nonspecific ST and T wave abnormality Abnormal ECG No previous ECGs available Confirmed by Herve Ruiz DO ([id number]) on 12/27/2024 5:50:59 PM Electronically Signed By: HERVE RUIZ DO 12/27/241750 PATIENT NAME: MARYLOU CARNEY ALINA Electrocardiogram DATE OF : 39 PHYSICIAN: HERVE RUIZ DO REPORT #: [id number] REPORT IS CONFIDENTIAL AND NOT TO BE RELEASED WITHOUT AUTHORIZATION
== END 2024-12-27 16:45 | disposition home or self-care (01) ==
LOC: ED 14:43
PROVIDERS: Emergency Medicine
DX: I48.91 Unspecified atrial fibrillation (principal); I50.9 Heart failure, unspecified; E11.9 Type 2 diabetes mellitus without complications; I25.10 Atherosclerotic heart disease of native coronary artery without angina pectoris; K21.9 Gastro-esophageal reflux disease without esophagitis; Z87.891 Personal history of nicotine dependence; Z95.1 Presence of aortocoronary bypass graft; Z95.5 Presence of coronary angioplasty implant and graft; Z88.2 Allergy status to sulfonamides; Z88.8 Allergy status to other drugs, medicaments and biological substances; Z79.82 Long term (current) use of aspirin; Z79.899 Other long term (current) drug therapy
CPT/HCPCS: 36415; 80053; 81001; 83735; 84484; 85025; 93005; 93010; 96374; 99285-25

== ENCOUNTER 2025-01-03 19:10 | Emergency (ER) | payer MEDICARE, OTHER ==
[~2025-01-03] VITALS: Ht 170.2 cm; Wt 101.0 kg
[~2025-01-03 19:10] MED LIST changes: +METOPROLOL SUC100 MG PO
[2025-01-03 19:27] LABS: BASOPHILS 0.7 % (0.2-1.2); EOSINOPHILS 3.5 % (0.8-7.0); LYMPHOCYTES 18.7 % (21.8-53.1); MCH 29.5 PG (25.7-32.2); MCHC 32.8 g/dL (32.3-36.5); MCV 90.1 fL (79.0-92.2); MONOCYTES 10.5 % (5.3-12.2); NEUTROPHILS 65.4 % (34.0-67.9); RBC 4.13 M/uL (4.63-6.08)
[2025-01-03 19:33] LABS: INR 1.05 (0.80-1.30); PROTIME 13.0 Sec (11.2-14.2)
[2025-01-03 19:36] LABS: ALT (SGPT) 29.0 U/L (14-59); AST (SGOT) 26.0 U/L (15-37); GLOMERULAR FILTRATION RATE,EST 64.0 mL/min (>60); PROTEIN, TOTAL 6.8 g/dL (6.4-8.2); UREA NITROGEN 25.0 mg/dL (7-18)
[2025-01-04 00:58] VITALS: BP 114/62
--- NOTE | 2025-01-04 09:48 | EKG ---
[facility] [address] [facility] [place] [address] Signed Atrial fibrillation with rapid ventricular response ST \T\ T wave abnormality, consider anterior ischemia Abnormal ECG When compared with ECG of 27-DEC-2024 14:38, Nonspecific T wave abnormality no longer evident in Inferior leads Confirmed by Clayton Carolina MD ([id number]) on 01/04/2025 9:48:29 AM Electronically Signed By: CLAYTON CAROLINA MD 01/04/25 0948 PATIENT NAME: MARYLOU CARNEY ALINA Electrocardiogram DATE OF : 39 PHYSICIAN: CLAYTON CAROLINA MD REPORT #: [id number] REPORT IS CONFIDENTIAL AND NOT TO BE RELEASED WITHOUT AUTHORIZATION
== END 2025-01-04 00:58 | disposition short-term general hospital (02) ==
LOC: ED 19:10
PROVIDERS: Emergency Medicine
DX: R41.82 Altered mental status, unspecified (principal); I50.9 Heart failure, unspecified; I48.91 Unspecified atrial fibrillation; E11.9 Type 2 diabetes mellitus without complications; E78.5 Hyperlipidemia, unspecified; K21.9 Gastro-esophageal reflux disease without esophagitis; Z87.891 Personal history of nicotine dependence; Z88.2 Allergy status to sulfonamides; Z88.1 Allergy status to other antibiotic agents; Z88.8 Allergy status to other drugs, medicaments and biological substances; Z79.899 Other long term (current) drug therapy
CPT/HCPCS: 36415; 70450; 70496; 70498; 72125; 80053; 85025; 85610; 85730; 93005; 93010; 99285-25; A6590; J1953; Q9967